=== PATIENT | male | born 1970 | race African-American/Black ===

== ENCOUNTER 2021-06-18 09:07 | Emergency (ER) | payer BC ==
--- OUTSIDE RECORDS SUMMARY | 2021-06-18 09:11 | XMS REPORT | Continuity of Care Document ---
:1970 Author Organization [facility] t Address [address] [place] [address] Care Team Providers Name Role Phone Unavailable Unavailable Unavailable Problems This patient has no known problems. Allergies, Adverse Reactions, Alerts This patient has no known allergies or adverse reactions. Medications Ordered Filled Start Stop Current Ordering Indication Dosage Frequency Signature Comments Components Source Medication Medication Date Date Medication? Clinician (SIG) Name Name ProAir HFA ProAir HFA Yes Joaquín [address] [facility] Flonase Flonase Yes Joaquín 1 spray [facility] Claritin Claritin Yes Joaquín [address] [facility] [place] Yes Joaquín [address] [facility] Advair Advair Yes Joaquín [address] [facility] Procedures This patient has no known procedures. Encounters Start End Encounter Admission Attending Care Care Encounter Source Date/Time Date/Time Type Type Clinicians Facility Department ID 2021-02-27 2021-02-27 Outpatient [facility] [id number] [facility] 2021-01-24 2021-01-24 Outpatient [facility] [id number] 2020-09-25 2020-09-[address] [facility] [id number] [facility] 2020-05-23 2020-05-23 [facility] [id number] [facility] 14[facility] 14[facility]30[facility]00 [place] [employer] [facility] Medicine l Medicine Outpat[facility] ent Clinics 2020-01-17 2020-01-17 [facility] [id number] [address] 16:00:00 16:00:00 [place] [employer] [facility] Medicine [facility] Medicine Outpat[facility] Clinics 2019-12-07 2019-12-07 [facility] [id number] 09:45:00 09:45:00 [place] [facility] Medicine Medicine Outpati ent Clinics 2019-10-26 2019-10-26 [facility] [id number] 16:00:00 16:00:00 [place] [facility] [address] [facility] Medicine Outpati ent Clinics 2019-06-16 2019-06-16 [facility] [id number] [address] 16:45:00 16:45:00 [place] [employer] [facility] Medicine Outpati ent Clinics 2019-01-18 2019-01-18 [facility] [id number] 15:30:00 15:30:00 [place] [facility] [address] [facility] Medicine l Medicine Outpati ent Clinics 2018-12-10 2018-12-10 [facility] [id number] 08:30:00 08:30:00 [place] [address] [facility] Medicine Outpati ent Clinics 2018-10-27 2018-10-27 [facility] [id number] 08:00:00 08:00:00 [place] [address] [facility] Medicine Outpati ent Clinics 2018-10-20 2018-10-20 [facility] [id number] 13:49:00 13:49:00 [place] [employer] [facility] Out[facility] Clin[facility] 2018-06-19 2018-06-19 [facility] [id number] 11:41:00 11:41:[address] [facility] Out[facility] Clin[facility] 2018-05-28 2018-05-28 [facility] [id number] 09:40:00 09:40:[address] [facility] Out[facility] Clin[facility] 2018-03-24 2018-03-24 [facility] [id number] 16:00:00 16:00:[address] [facility] Results This patient has no known results.
--- NOTE | 2021-06-18 12:25 | ER ---
Nurse's Notes [facility] Name: Horace Truong Age: 50 yrs Sex: Male : 1970 Arrival Date: 06/18/2021 Time: 09:10 Bed External Waiting Private MD: Joaquín Wagner Diagnosis: Viral infection, unspecified Presentation: 06/18 10:42 Chief complaint: Patient states: body aches since Friday. Ebola Screen: Patient iw negative for fever greater than or equal to 101.5 degrees Fahrenheit, and additional compatible Ebola Virus Disease symptoms Patient denies exposure to infectious person. Patient denies travel to an Ebola-affected area in the 21 days before illness onset. No symptoms or risks identified at this time. Initial Sepsis Screen: Does the patient meet any 2 criteria? No. Patient's initial sepsis screen is negative. Does the patient have a suspected source of infection? No. Patient's initial sepsis screen is negative. Risk Assessment: Do you want to hurt yourself or someone else? Patient reports no desire to harm self or others. 10:42 Method Of Arrival: Ambulatory iw 10:42 Acuity: JORDAN 4 iw Historical: - Allergies: 10:42 No Known Allergies; iw - Immunization history:: Client reports having NOT received the Covid vaccine. Vital Signs: 10:42 BP 131 / 77; Pulse 85; Resp 16; Temp 98.9; Pulse Ox 99% on R/A; iw ED Course: 09:10 Patient arrived in ED. mr 09:11 Joaquín Wagner DO is Private Physician. mr 10:27 [facility] jr8 10:27 Jn Tierney MD is Attending Physician. jr8 10:42 Triage completed. iw 12:20 Arm band placed on. iw 12:24 Joaquín Wagner DO is Referral Physician. jr8 13:47 Bessie Wong, RN is Primary Nurse. iw Administered Medications: No medications were administered Outcome: 12:25 Discharge ordered by . jr8 13:47 Patient left the ED. iw Signatures: Rosanna Macias mr Bessie Wong, RN RN iw Jaison Curry PA PA jrMikayla
--- NOTE | 2021-06-18 12:26 | EDPHYS ---
Physician Documentation [facility] Name: Horace Truong Age: 50 yrs Sex: Male : 1970 Arrival Date: 06/18/2021 Time: 09:10 Bed External Waiting Private MD: Joaquín Wagner ED Physician Jn Tierney HPI: 06/18 10:28 This 50 yrs old Black Male presents to ER via Unassigned with complaints of Body aches. jr8 10:28 This is a 50-year-old male patient that presented to emergency room with cough, body jr8 aches, chills, sore throat for the past 2 days.. Severity of symptoms: At their worst the symptoms were mild in the emergency department the symptoms are unchanged. The patient has not experienced similar symptoms in the past. The patient has not recently seen a physician. Historical: - Allergies: 10:42 No Known Allergies; iw - Immunization history:: Client reports having NOT received the Covid vaccine. ROS: 10:28 Neck: Negative for injury, pain, and swelling, Cardiovascular: Negative for chest pain, jr8 palpitations, and edema, Abdomen/GI: Negative for abdominal pain, nausea, vomiting, diarrhea, and constipation, Back: Negative for injury and pain, MS/Extremity: Negative for injury and deformity, Skin: Negative for injury, rash, and discoloration, Neuro: Negative for headache, weakness, numbness, tingling, and seizure. 10:28 Constitutional: Positive for body aches, chills. 10:28 ENT: Positive for sore throat. 10:28 Respiratory: Positive for cough, Negative for shortness of breath, sputum production, wheezing. Exam: 10:28 Constitutional: This is a well developed, well nourished patient who is awake, alert, jr8 and in no acute distress. Eyes: Pupils equal round and reactive to light, extra-ocular motions intact. Lids and lashes normal. Conjunctiva and sclera are non-icteric and not injected. Cornea within normal limits. Periorbital areas with no swelling, redness, or edema. ENT: Nares patent. No nasal discharge, no septal abnormalities noted. Tympanic membranes are normal and external auditory canals are clear. Oropharynx with no redness, swelling, or masses, exudates, or evidence of obstruction, uvula midline. Mucous membranes moist. Neck: Trachea midline, no thyromegaly or masses palpated, and no cervical lymphadenopathy. Supple, full range of motion without nuchal rigidity, or vertebral point tenderness. No Meningismus. Cardiovascular: Regular rate and rhythm with a normal S1 and S2. No gallops, murmurs, or rubs. Normal PMI, no JVD. No pulse deficits. Respiratory: Lungs have equal breath sounds bilaterally, clear to auscultation and percussion. No rales, rhonchi or wheezes noted. No increased work of breathing, no retractions or nasal flaring. Abdomen/GI: Soft, non-tender, with normal bowel sounds. No distension or tympany. No guarding or rebound. No evidence of tenderness throughout. Skin: Warm, dry with normal turgor. Normal color with no rashes, no lesions, and no evidence of cellulitis. MS/ Extremity: Pulses equal, no cyanosis. Neurovascular intact. Full, normal range of motion. Neuro: Awake and alert, GCS 15, oriented to person, place, time, and situation. Cranial nerves II-XII grossly intact. Motor strength 5/5 in all extremities. Sensory grossly intact. Vital Signs: 10:42 BP 131 / 77; Pulse 85; Resp 16; Temp 98.9; Pulse Ox 99% on R/A; iw MDM: 11:16 Patient medically screened. [facility] 12:24 Data reviewed: vital signs, nurses notes, lab test result(s), and as a result, I will [facility] discharge patient. Data interpreted: Pulse oximetry: on room air is 99 %. Interpretation: normal. Counseling: I had a detailed discussion with the patient and/or guardian regarding: the historical points, exam findings, and any diagnostic results supporting the discharge/admit diagnosis, lab results, the need for outpatient follow up, a family practitioner, to return to the emergency department if symptoms worsen or persist or if there are any questions or concerns that arise at home. 06/18 10:28 Order name: Flu [facility] 06/18 10:28 Order name: Strep; Complete Time: 13:42 [facility] 06/18 13:28 Order name: Throat Culture EDMS 06/18 13:35 Order name: SARS-COV-2 RT PCR; Complete Time: 13:42 EDMS Administered Medications: No medications were administered Disposition: 14:49 Co-signature as Attending Physician, Jn Tierney MD I agree with the assessment and rn plan of care. Attestation: The patient's history, exam findings, diagnostics, and a summary of any interventions or procedures was reviewed in detail with Jaison DAO. Disposition Summary: 06/18/21 12:25 Discharge Ordered Location: Home jr8 Problem: new jr8 Symptoms: are unchanged jr8 Condition: Stable jr8 Diagnosis - Viral infection, unspecified jr8 Followup: jr8 - With: Joaquín Wagner, DO - When: 2 - 3 days - Reason: Recheck today's complaints, Continuance of care, Re-evaluation by your physician Discharge Instructions: - Discharge Summary Sheet jr8 - Viral Respiratory Infection jr8 - COVID-19 jr8 Forms: - Medication Reconciliation Form jr8 - Thank You Letter jr8 - Antibiotic Education jr8 - Prescription Opioid Use jr8 Prescriptions: - Tessalon Perles 100 mg Oral Capsule - take 1 capsule by ORAL route every 8 hours As needed; 15 capsule; Refills: 0, jr8 Product Selection Permitted Signatures: Dispatcher [employer] Bessie Meredith RN RN iw Nieto, Roman, MD MD rn Roszak, Josh, PA PA jr8 Corrections: (The following items were deleted from the chart) 12:45 10:29 CORONAVIRUS+BRZ ordered. ERIKA JAMES
[2021-06-18 14:06] VITALS: BP 131/77; TEMP 98.9; O2SAT 99
== END 2021-06-18 13:47 | disposition home or self-care (01) ==
LOC: ER 09:07
DX: U07.1 COVID-19 (principal)
CPT/HCPCS: 87070; 87081; 87804 ×2; 99281; U0003